=== PATIENT | male | born 1975 | race Caucasian/White ===

== ENCOUNTER 2017-07-31 12:56 | Observation (INO) | payer OTHER ==
--- NOTE | 2017-07-31 13:08 | CPEKG ---
Heart Rate: 64 RR Interval: 938 P-R Interval: 156 QRSD Interval: 84 QT Interval: 420 QTC Interval: 434 P [place]: 71 QRS [place]: 19 T Wave [place]: 12 EKG Severity - ABNORMAL ECG - EKG Impression: SINUS ARRHYTHMIA, RATE 49-85 EKG Impression: PROBABLE LEFT ATRIAL ABNORMALITY EKG Impression: PROBABLE ANTEROSEPTAL INFARCT, OLD Electronically Signed By: Ashli Nielsen 31-Jul-2017 15:52:36
[2017-07-31 13:24] LABS: PLATELET COUNT 195 10^3/uL (150-400)
--- NOTE | 2017-07-31 13:35 | EDPHY ---
H & P Time Seen by Provider: 07/31/17 13:06 HPI/ROS: CHIEF COMPLAINT: Chest pain, blurred vision. HISTORY OF PRESENT ILLNESS: This patient is a 42 y/o male complaining of chest pain onset two hours [employer]IL[employer]. He was dancing at the [employer] and developed sudden chest pain that felt like "someone stepping with two feet on my chest and pressing." This discomfort caused him to stop dancing and sit down, and he rates it at 9/10 discomfort at onset. This took about ten minutes to resolve enough to walk, but became worse again with exertion. His discomfort has remained and currently he rates it at 3/ 10. He endorses pain in left shoulder, a pulsing sensation in his head, and a pulsing sensation in his right hand as well. He denies shortness of breath, dizziness, nausea, or vomiting. He endorses increased stress lately. He travels frequently by airplane, but denies pain or swelling in calves. He is generally very active and healthy and exercises regularly. No hypertension, hyperlipidemia , diabetes, no known family history of heart problems. The patient additionally complains of episodes of blurred vision onset one month ago. This change in vision begins from the periphery and is like fog moving in bilaterally. This has never completely obscured his vision. He has had pain in the left shoulder which is similar to his shoulder discomfort today , and he visited primary care physician two weeks ago regarding this. There were no abnormal findings at that time, x-ray normal. He did not discuss his blurred vision with his primary care physician. No change in vision today. REVIEW OF SYSTEMS: A 10 point review of systems was performed and is negative with the exception of the elements mentioned in the history of present illness. Past Medical/Surgical History: Denies. Social History: Former smoker. Moderate alcohol use. Friend at bedside. Smoking Status: Current some day smoker Physical Exam: General Appearance: Alert, pleasant Eyes: Pupils equal and round, no conjunctival pallor or injection ENT, Mouth: Mucous membranes moist Neck: Normal inspection Respiratory: Lungs are clear to auscultation Cardiovascular: Tenderness over sternum. Regular rate and rhythm Gastrointestinal: Abdomen is soft and non-tender Neurological: A&O, nonfocal, normal gait Skin: Warm and dry, no rash Extremities: Nontender, no pedal edema Psychiatric: Mood and affect normal Constitutional: Initial Vital Signs Temperature (C) 36.4 C 07/31/17 12:57 Heart Rate 78 07/31/17 12:57 Respiratory Rate 20 07/31/17 12:57 Blood Pressure 131/75 H 07/31/17 12:57 O2 Sat (%) 96 07/31/17 12:57 O2 Delivery Mode Room Air Allergies/Adverse Reactions: gluten Allergy (Unknown, Verified 07/31/17 14:51) Sensitivity Home Medications: Medication Instructions Recorded NK [No Known Home Meds] 07/31/17 Medical Decision Making - Diagnostics EKG Interpretation: EKG interpreted by me reveals sinus arrhythmia, rate 49-85. LVH, poor R wave progression. Interpretation: Sinus arrhythmia. Imaging Results: Imaging Impressions Chest X-Ray 07/31/17 13:07 Impression: Normal. No pneumonia. Imaging: I viewed and interpreted images myself ED Course/Re-evaluation: 42 y/o male presents with chest pain onset around 11:30 am this morning while dancing. Exam reveals tenderness over the sternum, but the patient denies changes in his discomfort with palpation. Concern for acute coronary syndrome, given exertional chest pain, partially relieved with rest. Stat EKG reveals no evidence of ischemia or dysrhythmia. Plan for chest x-ray, labs including CBC, BMP, Troponin. Discussed admission vs. serial Troponin tests and outpatient followup. At this point I strongly recommend admission for this patient. As tomorrow is New Years Day, outpatient cardiology clinic testing will not be available. He and his friend will discuss this. Administered 324mg PO Aspirin. Chest x-ray normal. No evidence of pneumonia or other acute processes. Radiologist report concurs. Troponin negative. Labs otherwise unremarkable. 14:20 Per nurse, patient now admits to some increased pain with deep inspiration. Plan for D-dimer. He has no risk factors for pulmonary embolism and the D-dimer is normal, I can safely exclude pulmonary embolism as diagnosis. 14:[address] Leo, hospitalist. He accepts admission for chest pain. 14:30 Repeat EKG is unchanged. D-dimer negative. Differential Diagnosis: Differential diagnosis includes though it is not limited to pneumonia, pneumothorax, pulmonary embolism, aortic dissection, pericarditis, acute coronary syndrome. - Data Points Laboratory Results: Laboratory Results 07/31/17 13:15 07/31/17 13:15 07/31/17 07/31/1717 13:15 13:15 13:15 WBC RBC Hgb Hct MCV MCH MCHC RDW Plt Count MPV Neut % (Auto) Lymph % (Auto) [place] % (Auto) Eos % (Auto) Baso % (Auto) Nucleat RBC Rel Count Absolute Neuts (auto) Absolute Lymphs (auto) Absolute Monos (auto) Absolute Eos (auto) Absolute Basos (auto) Absolute Nucleated RBC Immature Gran % Immature Gran # D-Dimer < 0.27 ug/mLFEU ug/mLFEU (0.00-0.50) Sodium 145 mEq/L H mEq/L (134-144) Potassium 4.2 mEq/L mEq/L (3.5-5.2) Chloride 106 mEq/L mEq/L (97-110) Carbon Dioxide 25 mEq/l mEq/l (22-31) Anion Gap 14 mEq/L mEq/L (8-16) BUN 10 mg/dL mg/dL (7-23) Creatinine 0.8 mg/dL mg/dL (0.7-1.3) Estimated GFR > 60 Glucose 98 mg/dL mg/dL (70-100) Calcium 10.0 mg/dL mg/dL (8.5-10.4) Troponin I < 0.012 ng/mL ng/mL (0.000-0.034) Virus Culture Miscellaneous Test 07/31/17 07/31/17 13:15 11:40 WBC 5.38 10^3/uL 10^3/uL (3.80-9.50) RBC 5.26 10^6/uL 10^6/uL (4.40-6.38) Hgb 16.7 g/dL g/dL (13.7-17.5) Hct 46.7 % % (40.0-51.0) MCV 88.8 fL fL (81.5-99.8) MCH 31.7 pg pg (27.9-34.1) MCHC 35.8 g/dL g/dL (32.4-36.7) RDW 12.8 % % (11.5-15.2) Plt Count 195 10^3/uL 10^3/uL (150-400) MPV 9.3 fL fL (8.7-11.7) Neut % (Auto) 49.3 % % (39.3-74.2) Lymph % (Auto) 40.9 % % (15.0-45.0) [place] % (Auto) 8.2 % % (4.5-13.0) Eos % (Auto) 0.7 % % (0.6-7.6) Baso % (Auto) 0.7 % % (0.3-1.7) Nucleat RBC Rel Count 0.0 % % (0.0-0.2) Absolute Neuts (auto) 2.65 10^3/uL 10^3/uL (1.70-6.50) Absolute Lymphs (auto) 2.20 10^3/uL 10^3/uL (1.00-3.00) Absolute Monos (auto) 0.44 10^3/uL 10^3/uL (0.30-0.80) Absolute Eos (auto) 0.04 10^3/uL 10^3/uL (0.03-0.40) Absolute Basos (auto) 0.04 10^3/uL 10^3/uL (0.02-0.10) Absolute Nucleated RBC 0.00 10^3/uL 10^3/uL (0-0.01) Immature Gran % 0.2 % % (0.0-1.1) Immature Gran # 0.01 10^3/uL 10^3/uL (0.00-0.10) D-Dimer Sodium Potassium Chloride Carbon Dioxide Anion Gap BUN Creatinine Estimated GFR Glucose Calcium Troponin I Virus Culture Cancelled Miscellaneous Test Cancelled Medications Given: Discontinued Medications Aspirin (Aspirin) 324 mg PO EDNOW ONE Stop: 07/31/17 13:55 Last Admin: 07/31/17 14:11 Dose: 324 mg Sodium Chloride (Ns) 1,000 mls @ 0 mls/hr IV ONCE ONE; Wide Open PRN Reason: Protocol Stop: 07/31/17 13:56 Last Admin: 07/31/17 14:10 Dose: 1,000 mls Departure - Departure Disposition: [facility] Inpatient Acute Clinical Impression: Chest pain Qualifiers: Chest pain type: other chest pain Qualified Code(s): R07.89 - Other chest pain Condition: Fair Report Scribed for: Ashli Nielsen Report Scribed by: Ana M Carter Date of Report: 07/31/17 Time of Report: 13:35 Physician Review and Approval Statement: 07/31/17 13:35 Portions of this note were transcribed by a medical affairs manager. I personally performed a history, physical exam, medical decision making, and confirmed accuracy of information the transcribed note.
[2017-07-31] MEDS ORDERED: ASPIRIN 81 MG CHEWABLE TAB PO ONE (13:54)
[2017-07-31] MEDS ORDERED: NS 1,000 ML IV ONE (13:55)
--- NOTE | 2017-07-31 14:33 | CPEKG ---
Heart Rate: 46 RR Interval: 1304 P-R Interval: 160 QRSD Interval: 86 QT Interval: 484 QTC Interval: 424 P [place]: 65 QRS [place]: 1 T Wave [place]: -2 EKG Severity - ABNORMAL ECG - EKG Impression: SLOW SINUS ARRHYTHMIA, RATE 38-54 EKG Impression: PROBABLE ANTEROSEPTAL INFARCT, OLD Electronically Signed By: Ashli Nielsen 31-Jul-2017 15:52:15
--- NOTE | 2017-07-31 15:15 | PDGENHP ---
History and Physical - Chief Complaint Chest pain - History of Present Illness A 42-year-old male with no cardiac risk factors been in the emergency department today with chest pain. He was at a dance class at 11:30 a.m. this morning and developed what he described as a chest heaviness that occurred while exertion. Pain was described as a 10/10 pressure. It was not associated with any nausea, vomiting, or diaphoresis. It dissipated with rest after about 10 min. The patient still has some mild chest pressure described as a 2 to 3/ 10. Denies any previous episodes of chest pain. History Information - Allergies/Home Medication List Allergies/Adverse Reactions: gluten Allergy (Unknown, Verified 07/31/17 14:51) Sensitivity Home Medications: NK [No Known Home Meds] 07/31/17 [Last Taken Unknown] I have personally reviewed and updated: family history, medical history, social history, surgical history Past Medical History: Denies - Surgical History Additional surgical history: Hernia repair - Family History Additional family history: Unremarkable - Social History Smoking Status: Current some day smoker (He denied smoking to me) Alcohol Use: None Drug Use: None Review of Systems Review of Systems: ROS: 10pt was reviewed & negative except for what was stated in HPI & below Physical Exam Physical Exam: Temp Pulse Resp BP Pulse Ox 36.4 C 78 20 131/75 H 96 07/31/17 12:57 07/31/17 12:57 07/31/17 12:57 07/31/17 12:57 07/31/17 12:57 Constitutional: no apparent distress, appears nourished, not in pain Eyes: PERRL, anicteric sclera, EOMI Ears, Nose, Mouth, Throat: moist mucous membranes, hearing normal, ears appear normal, no oral mucosal ulcers Cardiovascular: regular rate and rhythym, no murmur, rub, or gallop, No edema Respiratory: no respiratory distress, no rales or rhonchi, clear to auscultation Gastrointestinal: normoactive bowel sounds, soft, non-tender abdomen, no palpable masses Genitourinary: no bladder fullness, no bladder tenderness Skin: warm, normal color, no rashes or abrasions, no fluctuance, no induration, No mottled Musculoskeletal: full muscle strength, no muscle tenderness, normal joint ROM, no joint effusions Neurologic: AAOx3, CN II-XII Intact, No facial droop Psychiatric: interacting appropriately, not anxious, not encephalopathic, thought process linear Lymph, Heme, Immunologic: no cervical LAD, no supraclavicular LAD Lab Data & Imaging Review 07/31/17 13:15 07/31/17 13:15 WBC 5.38 10^3/uL (3.80-9.50) 07/31/17 13:15 RBC 5.26 10^6/uL (4.40-6.38) 07/31/17 13:15 Hgb 16.7 g/dL (13.7-17.5) 07/31/17 13:15 Hct 46.7 % (40.0-51.0) 07/31/17 13:15 MCV 88.8 fL (81.5-99.8) 07/31/17 13:15 MCH 31.7 pg (27.9-34.1) 07/31/17 13:15 MCHC 35.8 g/dL (32.4-36.7) 07/31/17 13:15 RDW 12.8 % (11.5-15.2) 07/31/17 13:15 Plt Count 195 10^3/uL (150-400) 07/31/17 13:15 MPV 9.3 fL (8.7-11.7) 07/31/17 13:15 Neut % (Auto) 49.3 % (39.3-74.2) 07/31/17 13:15 Lymph % (Auto) 40.9 % (15.0-45.0) 07/31/17 13:15 [place] % (Auto) 8.2 % (4.5-13.0) 07/31/17 13:15 Eos % (Auto) 0.7 % (0.6-7.6) 07/31/17 13:15 Baso % (Auto) 0.7 % (0.3-1.7) 07/31/17 13:15 Nucleat RBC Rel Count 0.0 % (0.0-0.2) 07/31/17 13:15 Absolute Neuts (auto) 2.65 10^3/uL (1.70-6.50) 07/31/17 13:15 Absolute Lymphs (auto) 2.20 10^3/uL (1.00-3.00) 07/31/17 13:15 Absolute Monos (auto) 0.44 10^3/uL (0.30-0.80) 07/31/17 13:15 Absolute Eos (auto) 0.04 10^3/uL (0.03-0.40) 07/31/17 13:15 Absolute Basos (auto) 0.04 10^3/uL (0.02-0.10) 07/31/17 13:15 Absolute Nucleated RBC 0.00 10^3/uL (0-0.01) 07/31/17 13:15 Immature Gran % 0.2 % (0.0-1.1) 07/31/17 13:15 Immature Gran # 0.01 10^3/uL (0.00-0.10) 07/31/17 13:15 D-Dimer < 0.27 ug/mLFEU (0.00-0.50) 07/31/17 13:15 Sodium 145 mEq/L (134-144) H 07/31/17 13:15 Potassium 4.2 mEq/L (3.5-5.2) 07/31/17 13:15 Chloride 106 mEq/L (97-110) 07/31/17 13:15 Carbon Dioxide 25 mEq/l (22-31) 07/31/17 13:15 Anion Gap 14 mEq/L (8-16) 07/31/17 13:15 BUN 10 mg/dL (7-23) 07/31/17 13:15 Creatinine 0.8 mg/dL (0.7-1.3) 07/31/17 13:15 Estimated GFR > 60 07/31/17 13:15 Glucose 98 mg/dL (70-100) 07/31/17 13:15 Calcium 10.0 mg/dL (8.5-10.4) 07/31/17 13:15 Troponin I < 0.012 ng/mL (0.000-0.034) 07/31/17 13:15 Virus Culture Cancelled 07/31/17 11:40 Miscellaneous Test Cancelled 07/31/17 11:40 Visualized and Interpreted Chest x-ray results: Yes Chest X-Ray results: no infiltrate, normal Visualized and Interpreted EKG results: Yes EKG Interpretation: Positive for: normal sinsus rhythm, Q waves (Anterior septal leads) EKG additional interpertation: Rate 46 beats per minute Assessment & Plan Assessment: This is a 42-year-old male presenting with: # exertional chest pain -despite his lack of risk factors his story for exertional chest pain is concerning for acute coronary syndrome. He does have some Q-waves in the anterior septal leads. Plan: -place in observation -serial troponins -monitor on telemetry -stat echocardiogram to evaluate for evidence of previous myocardial infarction -will plan for exercise stress test once chest pain-free and workup negative. This could be done as outpatient if his troponins continue to be negative.
--- NOTE | 2017-07-31 17:49 | ECHO ---
[email or web address] [address] Main: [phone] Fax: [email or web address] Echocardiogram Name: MISSY CASTILLO MR#: [id number] Study Date: 07/31/2017 Study Time: 04:57 PM Date of : 1975 Age: 42 year(s) Height: 176 cm (69.29 in.) Weight: 77.11 kg (170 lb.) BSA: 1.93 m2 Gender: Male Examination: Echo Indication: Q waves in ant/septal leads/eval for signs of previous VT, Chest Pain Image Quality: Contrast: Requested by: Dean Leo BP: 115 mmHg/64 mmHg Heart Rate: Rhythm: Indication: Q waves in ant/septal leads/eval for signs of previous VT, Chest Pain Procedure Staff Baker Chef: Jeannette Schaefer Reading Physician: Zoë Lujan Requesting Provider: Dean Leo Conclusions: Normal size left ventricle. No LV hypertrophy. Normal global systolic LV function. EF is 66 %. No regional wall motion abnormality. Normal size right ventricle. Normal RV function. Mild aortic valve regurgitation is present. Trivial to mild tricuspid valve regurgitation. Pulmonary artery pressure is not obtained due to inadequate TR jet. There is no previous echocardiogram for comparison. Measurements: Chambers Valvular Assessment AV/MV Valvular Assessment TV/PV Normal Normal Normal Name Value Range Name Value Range Name Value Range Ao Vannesa (MM): 3.4 cm (2.2 cm-3.7 AV Vmax: 1.13 m/s (1 m/s-1.7 cm) m/s) IVSd (2D): 0.7 cm (0.6 cm-1.1 AV maxP mmHg ( - ) cm) MV E Vmax: 0.82 m/s ( - ) LVDd (2D): 5.4 cm (4.2 cm-5.9 MV A Vmax: 0.30 m/s ( - ) cm) MV E/A: 2.73 ( - ) LVDs (2D): 2.9 cm (2.1 cm-4 cm) LVPWd (2D): 0.8 cm (0.6 cm-1 cm) LVEF (MOD4): 66 % (>=55 %) Continued Measurements: Patient: MISSY CASTILLO Study Date: 07/31/2017 Page 1 of 2 04:57 PM Chambers Valvular Assessment AV/MV Name Value Name Value LADs: 3.3 cm MV E/E' Septal: 7.60 LADs Lon.0 cm MV E/E' Lateral: 5.60 LA Area: 18.7 cm2 Findings: Left Ventricle: Normal size left ventricle. No LV hypertrophy. Normal global systolic LV function. EF is 66 %. No regional wall motion abnormality. Normal diastolic LV function. Right Ventricle: Normal size right ventricle. Normal RV function. Left Atrium: The left atrium is normal in size. Right Atrium: The right atrium is normal in size. Mitral Valve: The mitral valve is normal in appearance and function. Trivial mitral valve regurgitation. Aortic Valve: The aortic valve is normal in appearance. Mild aortic valve regurgitation is present. No aortic valve stenosis is present. Tricuspid Valve: The tricuspid valve is normal in appearance and function. Trivial to mild tricuspid valve regurgitation. Pulmonary artery pressure is not obtained due to inadequate TR jet. Pulmonic Valve: The pulmonic valve is normal in appearance and function. Aorta: The aorta is normal. Pericardium: No pericardial effusion. (No Signature Object) Patient: MISSY CASTILLO Study Date: 07/31/2017 Page 2 of 2 04:57 PM [id number]
[2017-08-01 08:31] VITALS: TEMP 97.6
[2017-08-01 09:37] VITALS: BP 123/70; PULSE 62; RESP 15; O2SAT 94
--- NOTE | 2017-08-01 09:48 | CPIP ---
[f rep st] INVASIVE CARDIAC PROCEDURE PROCEDURE PERFORMED: Exercise stress test. FINDINGS: The patient did a Gonzalez protocol exercise stress test. He went 12 minutes and he had no c hest pain or chest tightness. The test was stopped for shortness of breath. He reached 99% of maxim um predicted heart rate. He had no diagnostic EKG changes with exercise. No arrhythmias. His basel ine EKG was unremarkable. IMPRESSION: This a negative stress test with a very good workload for EKG or clinical evidence of is chemia. I have reviewed with the patient the findings of this test and notified the hospitalist. The patient understands that if he has ongoing chest discomfort, he needs to come in for further eval uation. All his questions have been answered. COMPLICATIONS: None. CONDITION AT END OF STUDY: Excellent. /[id number]/MODL
--- NOTE | 2017-08-01 14:15 | ASDISCHSUM ---
Discharge Information Plan Status:Home with No Needs Medically Cleared to Leave:07/31/2017 Discharge Date:08/01/2017 10:29 AM CM D/C Disposition: ADT D/C Disposition:Home, Routine, Self-Care Projected Discharge Date:08/01/2017 12:00 AM Transportation at D/C: Discharge Delay Reason: Follow-Up Date:08/01/2017 12:00 AM Discharge Slot: Final Diagnosis: Placement Information Patient Contact Information Contact Name:JENNIFER Relationship:Life Partner Address:[facility] [address] Work Phone: City:[place] Phone: [facility]/Zip Code:[place] [address] Email: Financial Information Financial Class:[employer] Primary Plan Desc:[employer] HMO OPEN ACC LOCAL Primary Plan Number:[id number] Secondary Plan Desc: Secondary Plan Number: Assessment Information Intervention Information
--- NOTE | 2017-08-01 19:15 | GDS ---
[f rep st] DISCHARGE SUMMARY DISCHARGE DIAGNOSES: Noncardiac chest pain, suspect musculoskeletal. HISTORY: The patient is a 42-year-old male without cardiac risk factors, who developed chest pain du ring a dance class, 05/10, associated with exertion. He was admitted under observation. Serial trop onins and EKGs were unremarkable. He underwent exercise stress testing the next morning, and it was completely normal, and his chest pain is felt to be likely noncardiac, potentially musculoskeletal. Echocardiogram was also performed and was within normal limits. DISCHARGE MEDICATIONS: Please see computerized record for full detailed list. There were no new med ications given at the time of hospital discharge. ADDITIONAL DISCHARGE INSTRUCTIONS: Follow up with primary care. /[id number]/MODL
== END 2017-08-01 10:29 | disposition home or self-care (01) ==
LOC: F2W 17:40
PROVIDERS: ADMIT Family Medicine; ATTEND Family Medicine
DX: R07.89 Other chest pain (principal); F17.200 Nicotine dependence, unspecified, uncomplicated
CPT/HCPCS: G0378

== ENCOUNTER → 2017-08-04 | Outpatient (CLI) | payer OTHER | LOC: BMCIMAGING 18:21 | PROVIDERS: ATTEND Family Medicine | DX: S93.402A Sprain of unspecified ligament of left ankle, initial encounter (principal) ==